=== PATIENT | female | born 1980 | race Caucasian/White ===

== ENCOUNTER 2016-11-18 07:51 | Inpatient (IN) | payer OTHER ==
[~2016-11-18] VITALS: Ht 162.6 cm; Wt 92.5 kg
[2016-11-18 09:13] LABS: ABSOLUTE BASOPHIL COUNT 0 /CUMM (0.0-0.2); ABSOLUTE EOSINOPHIL COUNT 0.1 /CUMM (0.0-0.7); ABSOLUTE GRANULOCYTE CT 6.2 /CUMM (1.4-6.5); ABSOLUTE LYMPH COUNT 2.1 /CUMM (1.2-3.4); ABSOLUTE MONOCYTE COUNT 0.7 /CUMM (0.10-0.60); BASOPHIL % 0.5 % (0.0-2.0); EOSINOPHIL % 0.8 % (0-5); GRANULOCYTE % 68.3 % (42.2-75.2); MEAN CORPUSCULAR HGB 24.2 PG (27.0-31.0); MEAN CORPUSCULAR HGB CONC 32.4 G/DL (33.0-37.0); MEAN CORPUSCULAR VOLUME 74.7 FL (81.0-99.0); MEAN PLATELET VOLUME 11.3 FL (7.4-10.4); RBC DISTRIBUTION WIDTH 15.8 % (11.5-14.5); RED BLOOD CELL CT 4.15 /CUMM (4.20-5.40); WHITE BLOOD CELL COUNT 9.1 /CUMM (4.8-10.8)
[2016-11-18 09:30] LABS: PLATELET COUNT 166 /CUMM (130-400)
--- NOTE | 2016-11-18 11:55 | History & Physical ---
General Information and HPI MD Statement: I have seen and personally examined ERIC SANCHEZ and documented this H&P. The patient is a 35 year old female at [40] weeks and [2] days gestation who presented with a chief complaint of [ELECTIVE INDUCTION OF LABOR]. Source of Information: patient, old records Exam Limitations: no limitations History of Present Illness: 35 YO LMP (UNKN) BUT SHAN BY EARLY U/S @ 11 WKS ON 04/27/2017 - GIVING SHAN 11/16/2016 ISSUES FOR THIS 1.) AMA WEEKLY TESTING FROM 35 WKS - REASSURING . NL NT AND MAT T21 CFF-DNA DECLINED [facility]/ [facility] 2.) PPH ANFTER 2ND DELIVERY - REQUIRED PP BLOOD TRANSFUSION. - 3RD DELIVERY WAS "NO PROBLEM" 3.) 2ND TRIM ANEMIA ..6 - TXED IRON - ADMISSION H/H 04/12 Allergies/Medications Allergies: Coded Allergies: No Known Allergies (11/18/16) Home Med list Ferrous Sulfate 325 MG (65 MG IRON) TABLET 1 TAB PO DAILY ANEMIA Vit No.130/Iron/FA ( Tablet) 27 MG IRON-800 MCG TABLET 1 TAB PO DAILY VITAMIN SUPPORT Compliance With Home Meds: GOOD Past History [employer] History : 7 Para: 3 (1832) Last Menstrual Period: UNKN Estimated Delivery Date: 11/16/2016 Past [employer] History: [place] Past Pregnancies Past Pregnancies: 1 Date of Delivery: 01/12/2000 Gestational Age: 40 Length of Labor: 12 Weight: 8#4 Type of Delivery: vaginal Complications: NONE Past Pregnancies: 2 Date of Delivery: 08/24/2003 Gestational Age: 40 Length of Labor: 8 Weight: 9#2 Type of Delivery: vaginal Complications: PPH- TRANSFUSED PP Past Pregnancies: 3 Date of Delivery: 10/10/2010 Gestational Age: 40 Length of Labor: 7 Weight: 9#2 Type of Delivery: vaginal Complications: NO Medical History Blood Transfusion Hx: Yes Type of Reaction: NONE Neurological: NONE EENT: NONE Cardiovascular: NONE Respiratory: NONE Gastrointestinal: GERD Hepatic: NONE Renal: 18 YO UTI Musculoskeletal: NONE Psychiatric: NONE Endocrine: NONE Blood Disorders: anemia Cancer(s): NONE 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 Home Who Do You Live With? spouse, child, self Primary Language: Sinhala Smoking Status: Never Smoked ETOH Use: denies use Illicit Drug Use: denies illicit drug use Review of Systems Review of Systems: neg for cardiac pulmonary GI complaints Exam & Diagnostic Data Last 24 Hrs of Vital Signs/I&O T 98.4 R 18 P82 BP 122/72 PO2 99% RA Intake & Output 11/18 1600 11/18 0800 11/18 0000 Intake Total Output Total Balance Patient 204 lb Weight Obstetric Exam Wgt Gained During : 15 Pelvimetry: proven 9#2 Dilation (cm): 1 Effacement (%): 80 Station: -1 Membranes: intact Fluid: unknown Fundal Height (cm): 39 Multiple Gestation? No Contractions: irreg #1 - FHR Baseline: 130 Category: 1 Estimated Weight: 7#14 Presentation: VTX Patient for Induction? Yes Fletcher Score Fletcher Score Response Value Cervix Position: mid-position 1 Cervix Consistency: soft 2 Cervix Effacement: >80% 3 Cervix Dilation: 1-2 cm 1 Cervix Station: -1 2 Total 9 Physical Exam General Appearance Alert, Oriented X3, Cooperative, No Acute Distress Skin No Significant Lesion Cardiovascular Regular Rate Lungs Normal Air Movement Abdomen Normal Bowel Sounds, Soft, No Tenderness, No Hepatospenomegaly, GRAVID SOFT NONTENDER UTERUS F HT 39 cm VTX FHR 130's Neurological Normal Gait, Normal Speech Extremities No Tenderness/Swelling Reproductive (FEMALE) Normal female genitalia Labs Blood Type & Rh: B+ Antibody Screen: NEG Hct/Hgb & Platelets #1: 12.7/39/216,000 Hct/Hgb & Platelets #2: 9.7/32.6 197,000 Rubella: IMM VDRL #1: N VDRL #2: N HbsAg: N HIV #1: N HIV #2 N 1 Hr P 3 Hr PG: N/A Group B Strep: NEG Initial Ultrasound: 04/27/2017 11 WKS IUP - SHAN 11/16/2016 Anatomy Ultrasound: 07/01/2016 [facility] NL ANATOMY (20 2/7) ANT PLAC 3VC Ultrasound for EFW: 11/16/2016 49% 7#10 Genetic TestinST TRIM SCREEN WNL, NL CFF-DNA CF NEG DECLINED [facility]/ [facility] Last 24 Hrs of Labs/Star: Laboratory Tests 11/18/16 0825: Urine Color YEL, Urine Clarity HAZY H, Urine pH 7.0, Ur Specific Goff 1.025, Urine Protein TRACE H, Urine Ketones NEG, Urine Nitrite NEG, Urine Bilirubin NEG, Urine Urobilinogen 0.2, Ur Leukocyte Esterase SMALL H, Ur Microscopic SEDIMENT EXAMINED, Urine RBC FEW H, Urine WBC 5-10 H, Ur Epithelial Cells MOD H, Urine Crystals 3+ TRIP PHOS H, Urine Bacteria MOD H, Urine Mucus MOD H, Urine Hemoglobin TRACE-INTACT, Urine Glucose NEG 11/18/16 0820: CBC w Diff NO MAN DIFF REQ, RBC 4.15 L, MCV 74.7 L, MCH 24.2 L, RDW 15.8 H, MPV 11.3 H, Gran % 68.3, Lymphocytes % 23.2, Monocytes % 7.2, Eosinophils % 0.8 , Basophils % 0.5, Absolute Granulocytes 6.2, Absolute Lymphocytes 2.1, Absolute Monocytes 0.7 H, Absolute Eosinophils 0.1, Absolute Basophils 0, PUBS MCHC 32.4 L Assessment/Plan Assessment/Plan: IUP @ TERM FOR IOL GR B STR NEG H/O PPH W/ SECOND BABY - ACTIVE MANAGEMENT 3RD STAGE LABOR - BE PREPARED W/ PITOCIN. METHERGINE, MISO As Ranked By This Provider Problem List: 1. 2. Advanced maternal age affecting , antepartum 3. Elective induction of labor planned 4. Anemia affecting Core Measures/Miscellaneous Venous Thromboembolism VTE Risk Factors: / (FALL RISK) VTE Contraindications: Active Bleeding (FALL RISK) VTE Diagnosis: No Beta Rogelio Is Beta Rogelio a Home Med? No If Yes, Was This Ordered Today? No If No, Why Not? N/A Antibiotics Is Patient on Antibiotics? No Attending MD Review Statement Attending Statement Attending MD Statement: examined this patient, discussed with family, reviewed EMR data (avail), discussed w/nursing Attending Assessment/Plan: Arleen WHELAN MD
--- NOTE | 2016-11-18 14:23 | PN- OBGYN ---
Surgical Brief Attending Note Brief Attending Note: UPDATE: PT BREATHING W/ CONTRACTIONS- STAES "NO EPIDURAL FOR PAIN CONTROL"- APPARENTLY HAD "BACK PAIN X 1 YR PP" AFTER LAST DELIVERY AGRRES TO TRY NITROUS PITOCIN @ 10 MU CONTRACTIONS Q 2 MIN FHR 130'S W/ ACCELLERATIONS (CAT1) CX 3 CM/ 80/ -1 PROGRESS - PREFER CONTXN PATTERN 3 IN 10 MIN (CURRENTLY 5 IN 10 MIN)WILL DECREASE PITOCIN PER PROTOCAL FOLLOW CLOSELY
[2016-11-18] MEDS ORDERED: PRENATAL TABLE1 EAC2 PO (15:15)
[2016-11-18] MEDS ORDERED: FERROUS SULFAT325 M3 PO (15:15)
--- NOTE | 2016-11-18 19:34 | PN- OBGYN ---
Surgical Brief Attending Note Brief Attending Note: update: Pt considering epidural. Pitocin @ 11u contractions Q 2 to 3 min FHR 130"s Cat 1 cervix 3 to 4 cm/ 80%/ -1 station Progress. Reassuring FHR Plan Epidural - follow closely Arleen Jennings MD
--- NOTE | 2016-11-19 07:43 | PN- OBGYN ---
Surgical Brief Attending Note Brief Attending Note: assumed care of patient at 0730. She is a 35 year old presented yesterday for elective IOL. She was 2 cm yesterday am on admission and given pitocin throughout the day and night. Upon my sign out this am she is fully dilated with a forebag. Station is still high. Pt had SROM at 0230 this am. Currently , FHR tracing reassuing, ctx q 4 min, cvx fully/high station/forebag. Plan amniotomy of forebag and anticipate .
--- NOTE | 2016-11-19 09:45 | Labor & Delivery Summary ---
Delivery Summary Vaginal Delivery: Vaginal: vertex Episiotomy/Lacerations: Episiotomy/Lacerations: none Placenta: Placenta: spontanteous, normal, 3 vessel Anesthesia: block (EPIDURAL) Baby's Weight: 8.2LBS 3695G Apgars - 1 Min: 9 Apgars - 5 Min: 9 Additional Comments: PT PROGRESSED TO FULLY DILATED. PATIENT LABORED DOWN AND WAS NOTED TO HAVE A FIREBAG AND HIGH STATION. FOREBAG SPONATEOUSLY RUPTURED. SHE DELIVERED SHORTLY THEREAFTER WITHOUT COMPLICATION. PT PUSHED X 3 CONTRACTIONS. HEAD AND SHOULDERS DELIVERED SPONTAENOUSLY AND ATRAUMATICALLY . REMAINDER OF INFANT DELIVERED WITHOUT COMPLICATION. PLACENTA DELIVERED INTACT. PERINEUM INTACT. PT TOLERATED DELIVERY WELL AND WITHOUT COMPLICATION
--- NOTE | 2016-11-19 11:25 | PN- OBGYN ---
Surgical Brief Attending Note Brief Attending Note: NOTIFIED BY RN THAT MILIN[facility] HAS PICKED UP. ALREADY RECEIVED 30UNITS PIT/1L AND A SECOND BAG IS RUNNING IN AT 125/ HOUR. METHERGINE ORDERED. UPON MY ARRIVAL FUNDUS IS FIRM BUT I EXAMINED PT AND EXPRESSED 300ML OF CLOTS FROM LOWER UTERINE SEGMENT. MODERATE BLEEDING NOTED. I ORDERED HEMABATE. PATIENT ABSOLUTELY REFUSING CATHETER. I ADVISED THAT IF FULL BLADDER, THIS MAY BE INHIBITING UTERUS FROM "FIRMING UP". PATIENT ABSOLUTELY REFUSING CATHETER. MULTIPLE ATTEMPTS TO REASON WITH PATIENT THAT A CATHETER MAY BE HELPFUL. SHE AGAIN REFUSED. DISCUSSED THAT BLEEDING NOT CONTROLLED, WILL MAY NEED REPEATED EXAMS TO MANUALLY EXPRESS CLOTS, D AND C OR MORE INVASIVE PROCEDURES INCLUDING HSYTERECTOMY. PATIENT REFUSES CARE. SHE C/O PAIN C/O CLAMPING DOWN OF FUNDUS. ADVISED THAT LIKELY FROM MEDICATIONS. MAYBE WOULD NEED LESS MEDICATIONS ADDENDUM: PT REEVALUATED. 2 SMALL CLOTS EXPRESSED. FUNDUS QUITE FIRM. PT STILL REFUSING CATHETER
--- NOTE | 2016-11-19 12:16 | PN- OBGYN ---
Surgical Brief Attending Note Brief Attending Note: patient still refusing catheter unless has epidural so that wont feel it. refuses nitrous oxide. bleeding is moderate as opposed to heavy. she wanted to get up to void instead. with assistance , pt ambulated to void. voided 175. will continue to evaluate closely. hemodynamically stable.
--- NOTE | 2016-11-19 13:06 | PN- OBGYN ---
Surgical Brief Attending Note Brief Attending Note: per nursing, bleeding subsided after voiding. i had her hold pt for additional hour in the back to be sure that bleeding does not resume. and then can be transferred and epidural catheter removed. bleeding states doing well. pad examined. small blood in past 30min since pad change. fundus firm. continue close observation
[2016-11-20 08:16] LABS: ABSOLUTE BASOPHIL COUNT 0.1 /CUMM (0.0-0.2); ABSOLUTE EOSINOPHIL COUNT 0.1 /CUMM (0.0-0.7); ABSOLUTE GRANULOCYTE CT 7.4 /CUMM (1.4-6.5); ABSOLUTE LYMPH COUNT 2.5 /CUMM (1.2-3.4); ABSOLUTE MONOCYTE COUNT 0.9 /CUMM (0.10-0.60); BASOPHIL % 0.5 % (0.0-2.0); EOSINOPHIL % 0.6 % (0-5); GRANULOCYTE % 67.6 % (42.2-75.2); HEMATOCRIT 28.4 % (37-47); MEAN CORPUSCULAR HGB 24.3 PG (27.0-31.0); MEAN CORPUSCULAR HGB CONC 32.4 G/DL (33.0-37.0); MEAN CORPUSCULAR VOLUME 75.1 FL (81.0-99.0); MEAN PLATELET VOLUME 11.5 FL (7.4-10.4); PLATELET COUNT 148 /CUMM (130-400); RBC DISTRIBUTION WIDTH 15.5 % (11.5-14.5); RED BLOOD CELL CT 3.78 /CUMM (4.20-5.40)
--- NOTE | 2016-11-20 16:06 | PN- Post Delivery/GYN ---
Subjective Subjective: Doing well currently without any complaints. Wishes a circumcision for her son today. Risks were discussed consent was signed by mother Review of Systems: Negative for cardiac pulmonary GI complaints Objective Last 24 Hrs of Vital Signs/I&O Afebrile normal vital signs Physical Exam General Appearance Alert, Oriented X3, Cooperative, No Acute Distress Cardiovascular Regular Rate Lungs Normal Air Movement Abdomen Normal Bowel Sounds, Soft, No Tenderness, No Hepatospenomegaly, uterus is firm midline nontender Neurological Normal Gait, Normal Speech Extremities No Tenderness/Swelling Reproductive (FEMALE) Normal female genitalia, average lochia Current Medications: Current Medications Sig/Tamika Start time Last Medication Dose Route Stop Time Status Admin Acetaminophen 650 MG Q4P PRN 11/19 944 AC PO Al Hydroxide/Mg 30 ML Q6PRN PRN 11/18 2014 AC 11/18 Hydroxide PO 2030 Docusate Sodium 100 MG BID PRN 11/19 944 AC PO Hydroxyzine HCl 50 MG AT BEDTIME NEED.. 11/19 944 AC PO Ibuprofen 800 MG .STK-MED ONE 11/20 0305 DC PO 11/20 0306 Ibuprofen 800 MG Q6P PRN 11/19 944 AC 11/20 PO 1117 Lactated Ringer's 1,000 ML Q8H 11/18 0800 AC 11/19 IV 0100 Magnesium Hydroxide 30 ML DAILY PRN 11/19 944 AC PO Oxycodone/ 1 TAB Q3P PRN 11/19 944 AC 11/19 Acetaminophen PO 2351 Oxytocin 30 UNITS PER PROTOCL 11/18 1000 AC 11/18 Lactated Ringer's 500 ML IV 0949 Senna 374 MG AT BEDTIME NEED.. 11/19 944 AC PO Last 24 Hrs of Labs/Star: Laboratory Tests 11/20/16 0655: CBC w Diff NO MAN DIFF REQ, RBC 3.78 L, MCV 75.1 L, MCH 24.3 L, RDW 15.5 H, MPV 11.5 H, Gran % 67.6, Lymphocytes % 22.8, Monocytes % 8.5, Eosinophils % 0.6 , Basophils % 0.5, Absolute Granulocytes 7.4 H, Absolute Lymphocytes 2.5, Absolute Monocytes 0.9 H, Absolute Eosinophils 0.1, Absolute Basophils 0.1, PUBS MCHC 32.4 L Assessment/Plan Assessment/Plan Stable day #1. Plan is to advance to regular diet following ambulation by mouth pain medication Problem List: 1. Advanced maternal age affecting , antepartum 2. Elective induction of labor planned 3. Anemia affecting Attending MD Review Statement Attending Statement Attending MD Statement: examined this patient, discussed with family, reviewed EMR data (avail), discussed with nursing Attending Assessment/Plan: Blanca Jennings MD ending dictation
[2016-11-20] MEDS ORDERED: IBUPROFEN800 M1 PO (16:11)
[2016-11-20] MEDS ORDERED: FERROUS SULFAT325 M3 PO (16:11)
[2016-11-20] MEDS ORDERED: PRENATAL TABLE1 EAC2 PO (16:11)
--- NOTE | 2016-11-21 11:24 | PN- Post Delivery/GYN ---
Subjective Subjective: Patient is ready to go home. She is unfortunately somewhat discouraged with breast-feeding due to very sensitive nipples. In the past she had no problems breast-feeding her other children but her nipples been incredibly uncomfortable with breast-feeding. Likely we will switch to bottle feeding Review of Systems: Negative for cardiac pulmonary GI complaints Objective Last 24 Hrs of Vital Signs/I&O Afebrile normal vital signs Physical Exam General Appearance Alert, Oriented X3, Cooperative, No Acute Distress Cardiovascular Regular Rate Lungs Normal Air Movement Abdomen Normal Bowel Sounds, Soft, No Tenderness, No Hepatospenomegaly, uterus is firm midline nontender 3 fingerbreadths below the umbilicus. Neurological Normal Gait, Normal Speech Extremities No Tenderness/Swelling Reproductive (FEMALE) Normal female genitalia, average lochia Current Medications: Current Medications Sig/Tamika Start time Last Medication Dose Route Stop Time Status Admin Acetaminophen 650 MG Q4P PRN 11/19 0945 AC PO Al Hydroxide/Mg 30 ML Q6PRN PRN 11/18 2014 AC 11/18 Hydroxide PO 2030 Docusate Sodium 100 MG BID PRN 11/19 0945 AC PO Hydroxyzine HCl 50 MG AT BEDTIME NEED.. 11/19 0845 AC PO Ibuprofen 800 MG .STK-MED ONE 11/20 1801 DC PO 11/20 1802 Ibuprofen 800 MG Q6P PRN 11/19 0945 AC 11/21 PO 0847 Lactated Ringer's 1,000 ML Q8H 11/18 0800 AC 11/19 IV 0100 Magnesium Hydroxide 30 ML DAILY PRN 11/19 0945 AC PO Oxycodone/ 1 TAB Q3P PRN 11/19 0845 AC 11/19 Acetaminophen PO 2351 Oxytocin 30 UNITS PER PROTOCL 11/18 1000 AC 11/18 Lactated Ringer's 500 ML IV 0949 Senna 374 MG AT BEDTIME NEED.. 11/19 0945 AC PO Assessment/Plan Assessment/Plan Stable day #2. Patient is ready to go home. Plan is to discharge home follow up in 2 and 6 weeks postoperatively Problem List: 1. 2. Advanced maternal age affecting , antepartum 3. Elective induction of labor planned 4. Anemia affecting Attending MD Review Statement Attending Statement Attending MD Statement: examined this patient, discussed with family, reviewed EMR data (avail), discussed with nursing Attending Assessment/Plan: Blanca Jennings MD
== END 2016-11-21 12:35 | DRG 560 ==
LOC: GNO 07:51
PROVIDERS: Obstetrics & Gynecology; ADMIT Obstetrics & Gynecology
PROC: 3E033VJ Introduction of Other Hormone into Peripheral Vein, Percutaneous Approach (ICD-10-PCS; 2016-11-18)
PROC: 10E0XZZ Delivery of Products of Conception, External Approach (ICD-10-PCS; principal; 2016-11-19)
DX: O99.02 Anemia complicating childbirth (principal); Z3A.40 40 weeks gestation of pregnancy; Z37.0 Single live birth; O09.523 Supervision of elderly multigravida, third trimester
CPT/HCPCS: GNOP; GNOS; 36415; 81001; 87086; J1885; J2210; J7120